=== PATIENT | male | born 1955 | race Caucasian/White ===

== ENCOUNTER 2022-03-08 06:38 | Outpatient (CLI) | payer MEDICARE, SELFPAY ==
--- NOTE | ~2022-03-08 | MR_ITS ---
EXAMINATION: MR humerus LT wo/w con DATE: 03/08/2022 08:06 INDICATION: Left upper arm mass. TECHNIQUE: Magnetic resonance imaging (MRI) of the left humerus was performed without and with 15 mL MultiHance intravenous contrast. COMPARISON: Left shoulder radiographs 02/21/2022 FINDINGS: Bone alignment is normal. No fracture. There is mild osteoarthritis of glenohumeral joint a nd severe osteoarthritis of acromioclavicular joint. In the medial upper arm along the neurovascular bundle, there is a 3.0 x 2.6 x 4.1 cm lipoma. IMPRESSION: 1. 4.1 cm lipoma in left medial upper arm. Reviewed, dictated and finalized at location A. [facility] [employer]
== END 2022-03-08 06:39 | disposition home or self-care (01) ==
PROVIDERS: PCP Orthopaedic Surgery; Visit Provider Orthopaedic Surgery
DX: D17.22 Benign lipomatous neoplasm of skin and subcutaneous tissue of left arm (principal)
CPT/HCPCS: 73220; A9577

== ENCOUNTER 2022-05-22 08:00 | Outpatient (RCR) | payer MEDICARE, SELFPAY ==
--- NOTE | 2022-03-07 15:02 | PTOPEVAL1 ---
Assessment and note entered by Kaushik Elizabeth, PT, DPT Evaluation Information Assessment Status Evaluation Diagnosis césar shoulder pain Onset chronic Subjective Information Pt states he has césar shoulder pain and has for a few years. He states he received shoulder injections 2 weeks ago and they have seemed to help. He reports pain at rest, with motion, and while trying to sleep. He also reports he has noticed a decrease in strength. He states his L shoulder is worse than his R. Reported Pain Level Pain Score 0,1: Self Report Assessment PT Clinical Summary Dominik presents to therapy today for his initial evaluation with a diagnosis of césar shoulder pain. Today he demonstrates active ROM that is WNL ~160 deg of both active flexion and abduction, césar. He demonstrates decreased shoulder and scapular strength bilaterally. With increased resistance he demonstrates increased compensations and increased pain. Skilled physical therapy services are indicated to address the deficits noted above, to improve strength, to limit pain, and to return to baseline function. Plan of Care Interventions Electrical Stimulation,Hot Pack/Cold Pack,Manual Therapy,Neuro Re-education,Patient/Caregiver Educati,Therapeutic Activities,Therapeutic Exercise PT Services Indicated Yes Treatment Frequency and 2x/wk for 6 wks Duration These treatments will address the objective and functional deficits as defined above. The patient will be advanced safely and appropriately in order for the patient to progress towards his/her prior level of function. Additional exercises will be introduced and as well as a comprehensive home exercise program upon discharge, if needed, ?to ensure carryover of functional gains achieved in the clinic. This treatment plan has been reviewed and agreement upon by the patient.
--- NOTE | 2022-04-18 09:40 | PTOPPROG ---
Assessment and note entered by Kaushik Elizabeth, PT, DPT Evaluation Information Assessment Status Progress Diagnosis césar shoulder pain Onset chronic Subjective Information Pt states most of the time things are going pretty well. He states the last 2 nights his left shoulder has woken him up. Pt reports 70% improve on his R shoulder and 50% improvement on the L shoulder. He states he still is limited with his overhead strength or lifting things up out in front of him. Assessment PT Clinical Summary Dominik presents to therapy today for his progress report following 10 visits of skilled therapy to treat his césar shoulder pain. Today he demonstrates improved active ROM, to ~160 deg into flexion and abduction césar. He demonstrates improved strength grossly 4/5, R stronger than L shoulder, and still decreased from expected. His pain has improved but he continues to have intermittent pain that wakes him from sleep. He demonstrates good scapulohumeral rhythm. He is progressing well towards his therapy goals. Continuation of skilled physical therapy services are indicated to limit additional improvement symptoms, to further progress strength, to limit pain, and to promote unlimited functional mobility. Plan of Care Interventions Electrical Stimulation,Hot Pack/Cold Pack,Manual Therapy,Neuro Re-education,Patient/Caregiver Educati,Therapeutic Activities,Therapeutic Exercise PT Services Indicated Yes Treatment Frequency and 1x/wk for 5 wks Duration These treatments will address the objective and functional deficits as defined above. The patient will be advanced safely and appropriately in order for the patient to progress towards his/her prior level of function. Additional exercises will be introduced and as well as a comprehensive home exercise program upon discharge, if needed, ?to ensure carryover of functional gains achieved in the clinic. This treatment plan has been reviewed and agreement upon by the patient.
--- NOTE | 2022-05-22 08:40 | PTOPDC ---
Assessment and note entered by Kaushik Elizabeth, PT, DPT Evaluation Information Assessment Status Discharge Diagnosis césar shoulder pain Onset chronic Subjective Information Pt states overall his shoulder is feeling pretty good. He states they still get really sore when he over works them. Pt reports 1-3/10 pain currently and 5-7/10 at its worst in the last week after shoveling his driveway. Pt reports 60-70% improvement in overall symptoms. Pt reports his greatest difficulty is still trying to lift, or hold any weight over his head. Reported Pain Level Pain Score 1,3: Self Report Assessment PT Clinical Summary Dominik presents to therapy today for his progress report following 15 visits of skilled therapy to treat his césar shoulder pain. He reports excellent compliance with his HEP and is progressing well towards his therapy goals. Today he demonstrates excellent césar shoulder ROM that is WNL. He demonstrates fair shoulder strength but his pain increases with increased resistance. He states he has followed up with an orthopedic doctor and they have identified a partial tear that is likely surgical. It is recommended that Dominik continue with his HEP prior to surgery. He will be discharged from skilled therapy services at this time. Plan of Care PT Services Indicated Yes Treatment Frequency and to be discharged Duration
== END 2022-05-22 13:18 | disposition home or self-care (01) ==
LOC: ANHGOSHPT 08:00
PROVIDERS: PCP Orthopaedic Surgery; Visit Provider Orthopaedic Surgery
DX: M25.511 Pain in right shoulder (principal); M25.512 Pain in left shoulder
CPT/HCPCS: 97110; 97112; 97140; 97161

== ENCOUNTER 2024-01-09 14:31 | Emergency (ER) | payer MEDICARE, SELFPAY ==
[2024-01-09 14:43] VITALS: BP 158/119; PULSE 125; RESP 16; TEMP 37.2; O2SAT 99
--- NOTE | 2024-01-09 15:02 | ED.SKABFB ---
HPI - Skin/Abscess/Foreign Bdy General Chief complaint: Skin/Abscess/Foreign Body Stated complaint: Rash Time Seen by Provider: 01/09/24 15:02 Source: patient Mode of arrival: ambulatory Limitations: no limitations History of Present Illness HPI narrative: 68 yo M with generalized hives. Started last night after doing some outdoor trimming. Took benadryl prior to arrival and is helping itching. All systems reviewed and negative except as noted above. Related Data Home Medications Medication Instructions Recorded Confirmed esomeprazole magnesium 20 mg 20 mg PO DAILY 02/20/22 05/09/22 capsule,delayed release glucosamine 750 mg-MSM 60 tablet PO 02/20/22 05/09/22 mg-chondroit 150 mg-hyaluron ac 1 mg tablet multivit,Ca,min-iron 8 mg-folic tablet PO 02/20/22 05/09/22 acid 200 mcg-lycopene 600 mcg tablet (Centrum Men) omega-3s 300 fh-rgh-nwf-other cap PO 02/20/22 05/09/22 [id number] oil 1,000 mg capsule ([place]-3 Fish Oil) Allergies Allergy/AdvReac Type Severity Reaction Status Date / Time No Known Allergies Allergy Verified 01/09/24 14:35 Review of Systems Review of Systems: CONSTITUTIONAL: Denies fever, chills, or sweats. EYES: Denies visual changes, redness, or discharge. ENT: Denies rhinorrhea, congestion, sore throat, or otalgia. CARDIOVASCULAR: Denies chest pain, palpitations, or edema. RESPIRATORY: Denies cough or dyspnea. GASTROINTESTINAL: Denies abdominal pain, nausea, vomiting, or diarrhea. GENITOURINARY: Denies dysuria or hematuria. SKIN: Reports generalized rash with itching. MUSCULOSKELETAL: Denies back pain, joint pain, or myalgia. NEUROLOGIC: Denies headache, numbness, or weakness. PSYCHIATRIC: Denies anxiety or depression. All other systems reviewed are negative, except as documented in HPI. [facility] Past Medical History Medical History (Updated 01/09/24 @ 15:12 by Shanna Patel NP) Arthritis Bilateral shoulder pain Lipoma of left upper extremity Rotator cuff tear, left Surgical History Surgical History History of bilateral inguinal hernia repair History of hand surgery trigger finger release Family History Family History Mother Family history of osteoarthritis Diabetes mellitus Father Family history of malignant neoplasm Cancer Sibling Family history of malignant neoplasm Cancer Grandparent Cerebrovascular accident Other Family history of cardiovascular disease Hypertension Social History Social History Smoking packs per day: 1 Smoking cigarettes per day: 20.0 Years smoked: 50 Smoking pack-years: 50.00 Smoking status: Current every day smoker Tobacco type: cigarettes Alcohol intake: current Living arrangements: with family 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 There is no relevant family history pertinent to the presenting complaint. Exam Narrative: GENERAL: This is a well-nourished, well-developed patient, in no apparent distress. HEAD: normocephalic, atraumatic. EYES: PERRL. Sclera clear/white. Vision is grossly intact. EARS: External ears normal, auditory canals clear and without drainage, TMs normal without perforation. Hearing grossly intact. NOSE: External nose normal with no obvious nasal discharge, nares without redness, no rhinorrhea. NECK: Neck supple, non-tender without lymphadenopathy, masses or thyromegaly. CARDIOVASCULAR: Regular rate and rhythm without murmurs, gallops, or rubs. RESPIRATORY: Clear to auscultation. Breath sounds equal bilaterally. No wheezes, rales, or rhonchi. SKIN: warm, Dry, intact, good texture and turgor. generalized hives, none to face. NEURO: awake, alert, and oriented to per
== END 2024-01-09 15:17 | disposition home or self-care (01) ==
PROVIDERS: Emergency Provider Nurse Practitioner Family
DX: L50.9 Urticaria, unspecified (principal); F17.210 Nicotine dependence, cigarettes, uncomplicated; M19.90 Unspecified osteoarthritis, unspecified site
CPT/HCPCS: 99213; G0463